=== PATIENT | male | born 1990 | race Caucasian/White ===

== ENCOUNTER 2020-07-08 10:20 | Outpatient (REF) | payer OTHER, SELFPAY ==
--- NOTE | 2020-07-08 10:28 | XR_ITS ---
EXAMINATION: XR WRIST, LEFT CLINICAL INFORMATION: Pain left wrist COMPARISON: None TECHNIQUE: The left wrist is imaged in 4 views. FINDINGS: There is no acute or healing fracture, dislocation, destructive process. Bony mineralization appears normal. The ulnar variance is neutral. There is no joint narrowing or erosive change or chondrocalcinosis. XR/XR wrist LT 2V IMPRESSION: No fracture, dislocation, or arthropathy.
== END 2020-07-08 10:21 | disposition home or self-care (01) ==
LOC: HO.XRAY 10:20
PROVIDERS: PCP Family Medicine; Visit Provider Family Medicine
DX: M25.532 Pain in left wrist (principal)
CPT/HCPCS: 73100

== ENCOUNTER 2020-08-08 15:30 | Outpatient (RCR) | payer OTHER, SELFPAY | END 2020-11-18 16:06 | disposition other institution (70) | LOC: HO.OT 15:30 | PROVIDERS: PCP Family Medicine; Visit Provider Family Medicine | DX: M25.532 Pain in left wrist (principal) | CPT/HCPCS: 97033; 97035; 97110; 97140; 97166 ==

== ENCOUNTER 2021-12-19 22:10 | Emergency (ER) | payer OTHER, SELFPAY ==
--- NOTE | ~2021-12-19 | CT_ITS ---
EXAMINATION: CT CHEST, ABDOMEN AND PELVIS WITHOUT CONTRAST CLINICAL INFORMATION: Fall. Chest pain. Pain left clavicle. COMPARISON: None. TECHNIQUE: Multidetector volumetric CT imaging of the chest, abdomen and pelvis was obtained without oral or intravenous contrast. Coronal and sagittal reformatted images are performed at CT scanner [This CT examination was performed using dose optimization techniques as appropriate, variously including the following: *Automated exposure control *Adjustment of mA and/or kV according to patient size (this includes techniques or standardized protocols for targeted exams where dose is matched to indication/reason for exam; i.e. extremities or head) *Use of iterative reconstruction technique] DLP: 1696 mGy-cm. FINDINGS: CT CHEST: Lungs: The lungs are clear with no evidence of inflammation or nodules. Mediastinum: The mediastinum is normal. Pleura: There is a small volume left-sided pneumothorax Axilla: No lymphadenopathy. CT ABDOMEN AND PELVIS: Liver, Gallbladder and Biliary Tree: The liver is normal in size, shape, and attenuation. No focal hepatic lesion or biliary ductal dilatation is present. The gallbladder is unremarkable with no evidence of radiopaque gallstones, gallbladder wall thickening, or obvious pericholecystic inflammatory changes. Pancreas: No acute change of the pancreas. No mass. No pancreatic duct dilatation. Spleen: Spleen normal in size and contour. No focal lesion. Adrenal Glands: Adrenal glands are normal in size. No focal mass. Kidneys and Ureters: The kidneys are normal in size, shape, and attenuation. No hydronephrosis, hydroureter, or calculi seen. No perinephric stranding. Bladder: Unremarkable. Gastrointestinal Tract: The small and large bowel are unremarkable. The appendix is unremarkable. Mesentery: No focal inflammation. No free fluid. No free air. Abdominal Wall: No significant hernia is appreciated. Lymph Nodes: Normal. Vascular: Unremarkable. Pelvic Viscera: Unremarkable. Osseous Structures: Comminuted displaced fracture of the distal left clavicle. Comminuted fracture of the anterior left second rib. CT/CT abdomen pelvis wo con IMPRESSION: 1. Small volume left-sided pneumothorax. 2. Comminuted displaced fracture of the distal left clavicle. Comminuted fracture of the anterior left second rib. 3. No acute abnormality of the abdomen or the pelvis. This critical result was discussed with Dr. Coronado on 12/19/2021, 11:30 PM and it was ascertained that the content and urgency of the report was understood at the time of direct communication.
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
[2021-12-19 22:14] VITALS: BP 131/76; PULSE 93; RESP 24; O2SAT 97; BMI 33.4
--- NOTE | 2021-12-19 22:15 | PC.NURSE ---
at bedside for primary eval.
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
[2021-12-19 22:37] LABS: MANUAL DIFF FLAG NO
[2021-12-19 22:39] LABS: Basophils Absolute Auto 0.1 X10*3/uL (0.0-0.2); Basophils Percent Auto 0.5 % (0-2); Eosinophils Absolute Auto 0.5 X10*3/uL (0.0-0.4); Eosinophils Percent Auto 4.5 % (0-4); Hematocrit 41.9 % (42.0-52.0); Hemoglobin 13.9 g/dl (14.0-18.0); Imm Gran Abs Auto 0.04 X10*3/uL (0.00-0.03); Imm Gran Pct Auto 0.4 % (0.0-0.4); Lymphocytes Absolute Auto 4.6 X10*3/uL (1.2-4.9); Lymphocytes Percent Auto 44.8 % (20-40); Mean Corpuscular HGB Conc 33.2 g/dl (31.0-36.0); Mean Corpuscular Hemoglobin 26.5 pg (27.0-33.0); Mean Platelet Volume 9.2 fL (9.4-12.4); Monocytes Absolute Auto 0.7 X10*3/uL (0.1-1.2); Monocytes Percent Auto 6.7 % (2-11); Neutrophils Absolute Auto 4.4 x10*3/uL (2.0-8.3); Neutrophils Percent Auto 43.1 % (45-73); Platelet Count 270 X10*3/uL (160-400); Red Blood Count 5.24 X10*6/uL (4.60-5.80); Red Cell Distribution Width 14.6 % (11.0-16.0); White Blood Count 10.2 X10*3/uL (4.8-10.8)
[2021-12-19] MEDS: Diphth,Pertus(ACell),Tet Adult 0.5 ML SYRINGE IM (22:57)
[2021-12-19] MEDS: Morphine Sulfate 4 MG/ML CARTRIDGE IVPUSH (22:58)
[2021-12-19] MEDS: ondansetron HCL 4 MG/2 ML VIAL IVPUSH (22:58)
[2021-12-19 23:06] LABS: COVID-19 Test Negative (Negative)
[2021-12-19 23:14] LABS: Ethanol < 10 mg/dL
[2021-12-19 23:15] LABS: Alkaline Phosphatase 72 U/L (39-117)
[2021-12-19 23:20] LABS: Alanine Aminotransferase 33 U/L (0-40); Albumin Level 4.2 g/dL (3.5-5.0); Anion Gap 14 (12-20); Aspartate Amino Transferase 23 U/L (5-37); Bilirubin Total 0.7 mg/dL (0.0-1.0); Blood Urea Nitrogen 11 mg/dL (9-16); Calcium 9.3 mg/dL (8.4-10.2); Carbon Dioxide 26 mmol/L (22-29); Chloride 106 mmol/L (96-108); Creatinine Clr Calc Pharmacy 104.6; Estimated Glomerular Filt Rate > 60; Glucose Random 128 mg/dL (60-115); Potassium 3.7 mmol/L (3.3-5.1); Sodium 142 mmol/L (135-145); Total Protein 7.1 g/dL (6.5-8.0)
--- NOTE | 2021-12-19 23:58 | PC.NURSE ---
call out to [facility] transfer line @2355
[2021-12-20] MEDS: Bacitracin Oint 14 GM TUBE 1 APPL TOPICAL (00:04)
--- NOTE | 2021-12-20 00:09 | PC.NURSE ---
PATIENT IS ACCEPTED BY NURSE TO NURSE [phone] [place] [id number] ROOM 5
[2021-12-20 00:11] VITALS: O2SAT 98
[2021-12-20 00:18] LABS: Prothrombin Time 11.6 SEC (9.9-13.0)
[2021-12-20 00:21] LABS: Partial Thromboplastin Time 35.5 SEC (24.1-38.0)
[2021-12-20] MEDS: Morphine Sulfate 4 MG/ML CARTRIDGE IVPUSH (00:22)
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
--- NOTE | 2021-12-20 00:43 | PC.NURSE ---
Addendum entered by Joellen Mccann 12/20/21 00:46: CALL OUT TO [facility] @0043 [facility] DOESNT HAVE ANY [facility] TRUCKS AVAILABLE TO TRANSFER PATIENT. Original Note: CALL OUT TO [facility] @0043
--- NOTE | 2021-12-20 00:45 | PC.NURSE ---
CALL OUT TO [facility] @0044 TO TRANSFER PATIENT TO [facility] AND [facility] HAS NO ALS TRUCKS TO TRANSFER PATIENT
[2021-12-20 00:47] LABS: Appearance Urine CLEAR; Color Urine YELLOW; Glucose Urine UA NEG (NEG); Leukocyte Esterase Urine NEG (NEG); Nitrite Urine NEG (NEG); Specific Gravity - Urine >= 1.030 (1.005-1.025); Urine Blood NEG (NEG); Urine Ketones 5 MG/DL (NEG); Urine Protein NEG (NEG-TRACE)
[2021-12-20 01:00] LABS: Amphetamine Screen Urine Not Detected (Not Detect); Barbiturates, Urine Not Detected (Not Detect); Benzodiazepines Screen Urine Not Detected (Not Detect); Cannabinoid Screen Urine Not Detected (Not Detect); Cocaine Screen Urine Not Detected (Not Detect); Fentanyl, urine Not Detected (Not Detect); Opiate Screen Urine POSITIVE (Not Detect); Phencyclidine Screen Urine Not Detected (Not Detect)
--- NOTE | 2021-12-20 01:04 | PC.NURSE ---
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
== END 2021-12-20 01:44 | disposition short-term general hospital (02) ==
PROVIDERS: Emergency Provider Emergency Medicine Emergency Medical Services; PCP Family Medicine
DX: S27.0XXA Traumatic pneumothorax, initial encounter (principal); S22.32XA Fracture of one rib, left side, initial encounter for closed fracture; S42.022A Displaced fracture of shaft of left clavicle, initial encounter for closed fracture; S40.212A Abrasion of left shoulder, initial encounter; S40.211A Abrasion of right shoulder, initial encounter; S60.512A Abrasion of left hand, initial encounter; S60.511A Abrasion of right hand, initial encounter; S80.812A Abrasion, left lower leg, initial encounter; S80.811A Abrasion, right lower leg, initial encounter; J45.909 Unspecified asthma, uncomplicated; V29.9XXA Motorcycle rider (driver) (passenger) injured in unspecified traffic accident, initial encounter; Y93.9 Activity, unspecified; Y92.410 Unspecified street and highway as the place of occurrence of the external cause; Y99.9 Unspecified external cause status; Z20.822 Contact with and (suspected) exposure to COVID-19
CPT/HCPCS: 36415; 70450; 71250; 72125; 74176; 80053; 80307; 81003; 82077; 85025; 85610; 85730; 87635; 90471; 90715; 93005; 96374; 96375; 96376; 99283; 99285; J2270; J2405